=== PATIENT | female | born 1975 | race Caucasian/White ===

== ENCOUNTER 2017-12-09 06:15 | Day surgery (SDC) | payer OTHER ==
[~2017-12-09 06:15] MED LIST: ANASTROZOLE1 MG PO; ATIVAN2 MG PO; PROZAC20 MG PO; REMERON45 M1 PO; RESTORIL30 MG PO; WELLBUTRIN XL300 MG PO
== END 2017-12-09 15:35 | disposition home or self-care (01) ==
LOC: CIR.AMB 06:15
DX: C50.911 Malignant neoplasm of unspecified site of right female breast (principal)